=== PATIENT | female | born 1990 | race Caucasian/White ===

== ENCOUNTER 2017-03-19 17:54 | Inpatient (IN) | payer MEDICAID, OTHER ==
[~2017-03-19] VITALS: Ht 142.2 cm; Wt 62.9 kg
[2017-03-19 17:55] VITALS: BP 135/87; PULSE 122; RESP 0; RESP 20; TEMP 99; O2SAT 98
--- NOTE | 2017-03-19 18:29 | PD ---
HPI Chief Complaint: Psychiatric Symptoms Time Seen by Provider: 18:26 Travel History International Travel<30 days: No Contact w/Intl Traveler<30days: No Traveled to known affect area: No History of Present Illness HPI HX OF BIPOLAR; PT HAS BEEN HAVING SUICIDAL THOUGHTS; WANTING TO CUT HERSELF IN AN ATTEMPT TO KILL HERSELF "IT WOULD BE BETTER FOR EVERYONE ELSE IF I'M GONE" RESIDED IN [facility] FOR 5 YRS; FOLLOWED BY SMA SENT HERE FOR PSYCHIATRIC ADMISSION FOR STABLIZATION [facility] Past Medical History ?: Unknown Social History Tobacco Use: No Allergies-Medications (Allergen,Severity, Reaction): Coded Allergies: No Known Allergies (Unverified , 03/19/17) Reported Meds & Prescriptions Reported Meds & Active Scripts Active Reported Bajandas Carbonate 300 Mg Cap 300 Mg PO BID Clozapine 100 Mg Tab 100 Mg PO HS Clozapine 50 Mg Tab 50 Mg PO BID Miralax Powder (Polyethylene Glycol 3350 Powder) 17 Gm Powd 17 Gm PO DAILY Mix and dissolve one measuring cap-ful (17 grams) in water or juice. Bisacodyl EC (Bisacodyl) 5 Mg Tabec 5 Mg PO DAILY PRN Review of Systems Except as stated in HPI: all other systems reviewed are Neg General / Constitutional: No: Fever Eyes: No: Visual changes HENT: No: Headaches Cardiovascular: No: Chest Pain or Discomfort Respiratory: No: Shortness of Breath Gastrointestinal: No: Abdominal Pain Genitourinary: No: Dysuria Musculoskeletal: No: Pain Skin: No Rash Neurologic: No: Weakness Psychiatric: Positive: Suicidal Ideations Endocrine: No: Polydipsia Hematologic/Lymphatic: No: Easy Bruising Physical Exam Narrative GENERAL: SKIN: Warm and dry. HEAD: Atraumatic. Normocephalic. EYES: Pupils equal and round. No scleral icterus. No injection or drainage. ENT: No nasal bleeding or discharge. Mucous membranes pink and moist. NECK: Trachea midline. No JVD. CARDIOVASCULAR: Regular rate and rhythm. RESPIRATORY: No accessory muscle use. Clear to auscultation. Breath sounds equal bilaterally. GASTROINTESTINAL: Abdomen soft, non-tender, nondistended. Hepatic and splenic margins not palpable. MUSCULOSKELETAL: Extremities without clubbing, cyanosis, or edema. No obvious deformities. NEUROLOGICAL: Awake and alert. No obvious cranial nerve deficits. Motor grossly within normal limits. Five out of 5 muscle strength in the arms and legs. Normal speech. PSYCHIATRIC: DEPRESSED mood and SAD affect; Data Data Last Documented VS Vital Signs Date Time Temp Pulse Resp B/P (MAP) Pulse Ox O2 Delivery O2 Flow Rate FiO2 03/19/17 18:40 18 03/19/17 17:55 99.0 122 135/87 (103) 98 Room Air Orders Orders Complete Blood Count With Diff (03/19/17 18:01) Basic Metabolic Panel (Bmp) (03/19/17 18:01) Urinalysis - C+S If Indicated (03/19/17 18:01) Ed Urine Pregnancytest Poc (03/19/17 18:01) Psych Screen (03/19/17 18:01) Bajandas (Li) (03/19/17 18:01) Drug Screen, Random Urine (03/19/17 18:01) Alcohol (Ethanol) (03/19/17 18:01) Urine Culture (03/19/17 18:10) Lorazepam Inj (Ativan Inj) (03/19/17 21:00) Admit Order (Ed Use Only) (03/19/17 23:37) Labs Laboratory Tests Test 03/19/17 18:10 White Blood Count 10.2 TH/MM3 Red Blood Count 4.46 MIL/MM3 Hemoglobin 12.9 GM/DL Hematocrit 38.2 % Mean Corpuscular Volume 85.6 FL Mean Corpuscular Hemoglobin 28.9 PG Mean Corpuscular Hemoglobin Concent 33.8 % Red Cell Distribution Width 12.2 % Platelet Count 266 TH/MM3 Mean Platelet Volume 8.5 FL Neutrophils (%) (Auto) 54.8 % Lymphocytes (%) (Auto) 36.0 % Monocytes (%) (Auto) 9.2 % Eosinophils (%) (Auto) 0.0 % Basophils (%) (Auto) 0.0 % Neutrophils # (Auto) 5.6 TH/MM3 Lymphocytes # (Auto) 3.7 TH/MM3 Monocytes # (Auto) 0.9 TH/MM3 Eosinophils # (Auto) 0.0 TH/MM3 Basophils # (Auto) 0.0 TH/MM3 CBC Comment DIFF FINAL Differential Comment Urine Color LIGHT-YELLOW Urine Turbidity CLEAR Urine pH 5.5 Urine Specific [place] 1.004 Urine Protein NEG mg/dL Urine Glucose (UA) NEG mg/dL Urine Ketones NEG mg/dL Urine Occult Blood NEG Urine Nitrite NEG Urine Bilirubin NEG Urine Urobilinogen LESS THAN 2.0 MG/DL Urine Leukocyte Esterase NEG Urine RBC 1 /hpf Urine WBC 3 /hpf Urine Squamous Epithelial Cells 2 /hpf Urine Bacteria MANY /hpf Urine Mucus FEW /lpf Microscopic Urinalysis Comment CULTURE INDICATED Blood Urea Nitrogen 17 MG/DL Creatinine 0.99 MG/DL Random Glucose 78 MG/DL Calcium Level 9.0 MG/DL Sodium Level 140 MEQ/L Potassium Level 3.6 MEQ/L Chloride Level 106 MEQ/L Carbon Dioxide Level 23.4 MEQ/L Anion Gap 11 MEQ/L Estimat Glomerular Filtration Rate 69 ML/MIN Urine Opiates Screen NEG Urine Barbiturates Screen NEG Urine Amphetamines Screen NEG Urine Benzodiazepines Screen NEG Bajandas Level 0.7 MEQ/L Urine Cocaine Screen NEG Urine Cannabinoids Screen NEG Ethyl Alcohol Level LESS THAN 3 MG/DL MDM Medical Decision Making Medical Screen Exam Complete: Yes Emergency Medical Condition: Yes Medical Record Reviewed: Yes Differential Diagnosis SUICIDAL IDEATION V HYPOTHYROID V ELECTROLYTE ABNL V LIVER ABNL Narrative Course PATIENT IS MEDICALLY CLEARED (ONLY FOUND TO HAVE UTI FOR WHICH PATIENT WAS TREATED WITH ONE TIME TREATMENT OF ROCEPHIN IM) OTHERWISE PATIENT'S CBC, BMP WERE WNL Diagnosis Primary Impression: CORNEJO ACT -MEDICALLY CLEARED Additional Impression: UTI S/P SINGLE TREATMENT WITH ROCEPHIN Matthew Oakley MD Mar 19, 2017 18:29
[2017-03-19 18:37] LABS: BACTERIA, URINE MANY /hpf; BLOOD, URINE NEG (NEG); COMMENT (UR) CULTURE INDICATED; CULTURE IF INDICATED CULTURE INDICATED; GLUCOSE,URINE NEG (NEG); KETONE, URINE NEG (NEG); MUCUS URINE FEW /lpf (OCC); NITRITE,URINE NEG (NEG); PH, URINE 5.5 (5.0-8.5); SQUAMOUS EPITHELIAL CELL URINE 2 /hpf (0-5); URINE COLOR LIGHT-YELLOW (YELLW/STRAW)
[2017-03-19 18:39] LABS: AUTOMATED NEUTROPHIL # 5.6 TH/MM3 (1.8-7.7); HEMATOCRIT 38.2 % (35.0-46.0); HEMO FLAGS DIFF FINAL; LYMPHOCYTE # 3.7 TH/MM3 (1.0-4.8); MEAN CELL VOLUME 85.6 FL (80.0-100.0); MEAN CORPUSCULAR HEMOGLOBIN 28.9 PG (27.0-34.0); MEAN CORPUSCULAR HGB CONC 33.8 % (32.0-36.0); MONO % 9.2 % (0.0-8.0); NEUT % 54.8 % (16.0-70.0); PLATELET COUNT 266 TH/MM3 (150-450); RED BLOOD COUNT 4.46 MIL/MM3 (4.00-5.30); RED CELL DISTRIBUTION WIDTH 12.2 % (11.6-17.2); WHITE BLOOD COUNT 10.2 TH/MM3 (4.0-11.0)
[2017-03-19] MEDS ORDERED: CLOZ100T3 PO (18:46)
[2017-03-19] MEDS ORDERED: LITH300C2 PO (18:46)
[2017-03-19] MEDS ORDERED: FLEE5TAB PO (18:46)
[2017-03-19] MEDS ORDERED: MIRA3350 PO (18:46)
[2017-03-19] MEDS ORDERED: CLOZ50TA PO (18:46)
[2017-03-19 18:48] LABS: ALCOHOL LESS THAN 3 MG/DL (0-5); ANION GAP 11 MEQ/L (5-15); BICARBONATE 23.4 MEQ/L (21.0-32.0); BLOOD UREA NITROGEN 17 MG/DL (7-18); CHLORIDE 106 MEQ/L (98-107); GLOMERULAR FILTRATION RATE 69 ML/MIN (>89); POTASSIUM 3.6 MEQ/L (3.5-5.1); SODIUM (NA) 140 MEQ/L (136-145)
[2017-03-19] MEDS ORDERED: LORazepam 2 MG/ML VIAL IM ONE (21:00)
[2017-03-20] MEDS ORDERED: LIDOCAINE HCL 1% PF 30 ML VIAL XX ONE (00:15)
[2017-03-20] MEDS ORDERED: hydrOXYzine HCL 50 MG TAB PO PRN (00:30)
[2017-03-20] MEDS ORDERED: diphenhydrAMINE HCL 50 MG CAP PO PRN (00:30)
[2017-03-20] MEDS ORDERED: ALUMINUM/MAGNESIUM/SIMETH 30 ML CUP PO PRN (00:30)
[2017-03-20] MEDS ORDERED: traZODone HCL 50 MG TAB PO PRN (00:30)
[2017-03-20] MEDS ORDERED: LORazepam 1 MG TAB PO PRN (00:30)
[2017-03-20] MEDS ORDERED: diphenhydrAMINE HCL 50 MG CAP - HS PRN PO (00:30)
[2017-03-20] MEDS ORDERED: MAGNESIUM HYDROXIDE SUSP 30 ML CUP PO PRN (00:30)
[2017-03-20] MEDS ORDERED: ACETAMINOPHEN 325 MG TAB PO PRN (00:30)
[2017-03-20] MEDS ORDERED: diphenhydrAMINE HCL 50 MG/ML VIAL IM PRN (00:30)
[2017-03-20] MEDS ORDERED: diphenhydrAMINE HCL 50 MG/ML VIAL - HS PRN IM (00:30)
[2017-03-20] MEDS ORDERED: LORazepam 2 MG/ML VIAL IM PRN (00:30)
[2017-03-20 00:45] VITALS: BP 142/69; PULSE 119; RESP 20; TEMP 98.1
[2017-03-20 06:46] VITALS: BP 128/65; PULSE 108; RESP 16; TEMP 98.6; O2SAT 98
[2017-03-20] MEDS: LITHIUM CARBONATE 300 MG SLOW RELEASE TAB PO SCH ×2 (09:32→20:37)
[2017-03-20] MEDS: cloZAPine 25 MG TAB PO SCH ×2 (09:32→14:09)
--- NOTE | 2017-03-20 10:45 | PD.TTN ---
Patient Problems 1. Discharge planning 2. Medication compliance 3. Knowledge deficit 4. Lack of coping skills Progress Toward Goals Provider Present: Dr. Faustina Stearns Provider Input: Dr. Ruffin's treatment team met to discuss patient's treatment plan, medication, and discharge plan. Will assess patient and treat patient accordingly. Nurse(s) Input: Patient's nurse Priti reports patient continues to be on 1 to 1 due to high impulsivity and suicidal ideation. Patient is medication compliant. Psychiatric Counselors Present: ANNA Chapman Psych Therapist Input: Patient is a new admission.. This counselor will assess patient and go over treatment plan and goals with patient. Group Spec/RT/OT/POTTER Present: ABBEY Hidalgo Group Spec/RT/OT/POTTER Input: Patient is new. Muriel Lafleur Mar 20, 2017 10:45
[2017-03-20] MEDS: BACITRACIN TOP OINT 15 GM TUBE TOPICAL SCH ×2 (14:00→20:41)
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
[2017-03-20 17:00] VITALS: BP 102/73; PULSE 104; RESP 16; TEMP 97.6; O2SAT 100
[2017-03-20] MEDS: cloZAPine 100 MG TAB PO SCH (20:37)
[2017-03-20] MEDS: MIRTAZAPINE 15 MG TAB PO SCH (20:37)
[2017-03-21] MEDS: BACITRACIN TOP OINT 15 GM TUBE TOPICAL SCH ×3 (05:45→22:30)
[2017-03-21 06:22] VITALS: BP 119/69; PULSE 110; RESP 18; TEMP 97.2; O2SAT 100
[2017-03-21] MEDS: LITHIUM CARBONATE 300 MG SLOW RELEASE TAB PO SCH ×2 (09:55→21:28)
[2017-03-21] MEDS: cloZAPine 25 MG TAB PO SCH (09:56)
[2017-03-21 13:53] LABS: AUTOMATED NEUTROPHIL # 3.6 TH/MM3 (1.8-7.7); BASOPHIL % 0.3 % (0.0-2.0); HEMATOCRIT 35.7 % (35.0-46.0); HEMO FLAGS DIFF FINAL; LYMPH % 31.2 % (9.0-44.0); LYMPHOCYTE # 1.9 TH/MM3 (1.0-4.8); MEAN CELL VOLUME 85.7 FL (80.0-100.0); MEAN CORPUSCULAR HEMOGLOBIN 29.8 PG (27.0-34.0); MEAN CORPUSCULAR HGB CONC 34.8 % (32.0-36.0); MONO % 9.3 % (0.0-8.0); NEUT % 59.2 % (16.0-70.0); PLATELET COUNT 232 TH/MM3 (150-450); RED BLOOD COUNT 4.17 MIL/MM3 (4.00-5.30); RED CELL DISTRIBUTION WIDTH 12.6 % (11.6-17.2)
[2017-03-21 14:18] LABS: ANION GAP 6 MEQ/L (5-15); BICARBONATE 26.3 MEQ/L (21.0-32.0); BLOOD UREA NITROGEN 13 MG/DL (7-18); CHLORIDE 111 MEQ/L (98-107); GLOMERULAR FILTRATION RATE 82 ML/MIN (>89); POTASSIUM 4.2 MEQ/L (3.5-5.1); SODIUM (NA) 143 MEQ/L (136-145)
[2017-03-21 14:29] LABS: HDL CHOLESTEROL 63.2 MG/DL (40.0-60.0); LDL CHOLESTEROL 86 MG/DL (0-99)
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
[2017-03-21 15:11] LABS: HEMOGLOBIN A1a 0.7 %; HEMOGLOBIN A1b 0.9 %; HEMOGLOBIN Ao 85.6 %; HEMOGLOBIN F 0.8 %; HEMOGLOBIN LA1C 2.1 %; HEMOGLOBIN P3 3.6 %
[2017-03-21 20:39] VITALS: BP 134/68; PULSE 97; RESP 17; TEMP 97.7; O2SAT 99
[2017-03-21] MEDS: MIRTAZAPINE 15 MG TAB PO SCH (21:28)
[2017-03-21] MEDS: cloZAPine 100 MG TAB PO SCH (21:28)
[2017-03-22] MEDS: BACITRACIN TOP OINT 15 GM TUBE TOPICAL SCH ×3 (06:00→21:10)
[2017-03-22 06:14] LABS: CLOZAPINE/NORCLOZAPINE TOTAL 300 ng/mL (>450); NORCLOZAPINE 146 ng/mL
[2017-03-22 06:41] VITALS: BP 116/57; PULSE 97; RESP 18; TEMP 98.6; O2SAT 98
[2017-03-22] MEDS: LITHIUM CARBONATE 300 MG SLOW RELEASE TAB PO SCH ×2 (08:15→21:10)
[2017-03-22] MEDS: cloZAPine 25 MG TAB PO SCH ×2 (08:15→14:00)
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
[2017-03-22 18:59] VITALS: BP 135/78; PULSE 107; RESP 17; TEMP 98.3; O2SAT 99
[2017-03-22] MEDS: MIRTAZAPINE 15 MG TAB PO SCH (21:09)
[2017-03-22] MEDS: cloZAPine 100 MG TAB PO SCH (21:09)
[2017-03-23 06:07] VITALS: BP 101/55; PULSE 94; RESP 16; TEMP 97.6; O2SAT 97
[2017-03-23] MEDS: BACITRACIN TOP OINT 15 GM TUBE TOPICAL SCH ×3 (06:14→22:00)
[2017-03-23] MEDS: cloZAPine 25 MG TAB PO SCH ×2 (09:08→14:11)
[2017-03-23] MEDS: LITHIUM CARBONATE 300 MG SLOW RELEASE TAB PO SCH ×2 (09:08→21:06)
--- NOTE | 2017-03-23 12:37 | HHI.PYPN ---
Subjective Chief Complaint: Suicidal ideation with self injurious behavior Remarks Patient was seen and case discussed with nursing. Patient is childlike and mildly oppositional. She is perseverative on ending her life she diego pictures of various ways of doing it. Also gunshot, hanging herself, jumping off is [address], or drowning. She denies any intent of hurting herself here in the hospital. She has a one-to-one. She is compliant with her medications and tolerating it well. Supportive therapy was provided Mental Status Examination Appearance: Appropriate, Other (childlike behavior (sucking on thumb, in position, holding stuffed animal) Consciousness: Alert Orientation: x4 Motor Activity: Normal gait Speech: Unremarkable Language: Adequate Fund of Knowledge: Inadequate Attention and Concentration: Adequate Memory: Unremarkable Mood: Sad, Oppositional, Other ("depressed") Affect: Blunt, Other (smiles occasionally) Thought Process & Associations: Linear Thought Content: Preoccupations (with wanted to end her life), Compulsive ( thoughts of self harm) Hallucination Type: None Delusion Type: None Suicidal Ideation: Yes Suicidal Plan: Yes (diego a picture of various plans) Suicidal Intention: No Homicidal Ideation: No Homicidal Plan: No Homicidal Intention: No Insight: Fair Judgment: Poor Results Labs Date/Time Source Procedure Growth Status 03/19/17 18:10 Urine Random Urine Urine Culture - Final 10-50,000 CFU/ML MIXED GRAM POSITIVE ... Complete Vitals/IOs Vital Signs Date Time Temp Pulse Resp B/P (MAP) Pulse Ox O2 Delivery O2 Flow Rate FiO2 03/23/17 06:07 97.6 94 16 101/55 (70) 97 03/19/17 17:55 Room Air Intake and Output 03/23/17 03/23/17 03/24/17 08:00 16:00 00:00 Intake Total 480 ml 480 ml Balance 480 ml 480 ml Assessment & Plan Problem List: (1) Bipolar disorder, current episode depressed, severe, without psychotic features ICD Codes: F31.4 - Bipolar disorder, current episode depressed, severe, without psychotic features Assessment & Plan Continue one-to-one. Justification for Cont. Inpt. Patient would decompensate in a less restrictive setting Shamir Nguyễn DO Mar 23, 2017 12:37
[2017-03-23] MEDS: cloZAPine 100 MG TAB PO SCH (21:06)
[2017-03-23] MEDS: MIRTAZAPINE 15 MG TAB PO SCH (21:06)
[2017-03-24] MEDS: BACITRACIN TOP OINT 15 GM TUBE TOPICAL SCH ×3 (06:00→20:16)
[2017-03-24 06:07] VITALS: BP 93/51; PULSE 96; RESP 18; TEMP 98.2; O2SAT 98
[2017-03-24] MEDS: cloZAPine 25 MG TAB PO SCH ×2 (08:58→14:04)
[2017-03-24] MEDS: LITHIUM CARBONATE 300 MG SLOW RELEASE TAB PO SCH ×2 (08:59→20:15)
--- NOTE | 2017-03-24 14:49 | HHI.PYPN ---
Subjective Chief Complaint: Suicidal ideation with self injurious behavior Remarks Patient was seen and case discussed with nursing. Patient remains childlike, hugging her stuffed animal. He appears less focused on various suicidal plans she says and does cross her mind. Asking about MiraLAX. Behaving well on the unit Mental Status Examination Appearance: Appropriate, Other (childlike behavior (sucking on thumb, in position, holding stuffed animal) Consciousness: Alert Orientation: x4 Motor Activity: Normal gait Speech: Unremarkable Language: Adequate Fund of Knowledge: Inadequate Attention and Concentration: Adequate Memory: Unremarkable Mood: Sad, Oppositional, Other ("depressed") Affect: Blunt, Other (smiles occasionally) Thought Process & Associations: Linear Thought Content: Preoccupations (with wanted to end her life), Compulsive ( thoughts of self harm) Hallucination Type: None Delusion Type: None Suicidal Ideation: Yes (fleeting) Suicidal Plan: Yes (various plans) Suicidal Intention: No Homicidal Ideation: No Homicidal Plan: No Homicidal Intention: No Insight: Fair Judgment: Poor Results Labs Date/Time Source Procedure Growth Status 03/19/17 18:10 Urine Random Urine Urine Culture - Final 10-50,000 CFU/ML MIXED GRAM POSITIVE ... Complete Vitals/IOs Vital Signs Date Time Temp Pulse Resp B/P (MAP) Pulse Ox O2 Delivery O2 Flow Rate FiO2 03/24/17 06:07 98.2 96 18 93/51 (65) 98 Assessment & Plan Problem List: (1) Bipolar disorder, current episode depressed, severe, without psychotic features ICD Codes: F31.4 - Bipolar disorder, current episode depressed, severe, without psychotic features Assessment & Plan Add MiraLAX Justification for Cont. Inpt. Patient will decompensate in a less restrictive setting Shamir Nguyễn DO Mar 24, 2017 14:49
[2017-03-24] MEDS: POLYETHYLENE GLYCOL 17 GM PKG PO SCH (15:07)
[2017-03-24 17:08] VITALS: BP 174/87; PULSE 80; RESP 17; TEMP 98.6; O2SAT 100
[2017-03-24 18:18] VITALS: BP 148/85; PULSE 113; RESP 17; TEMP 97.8; O2SAT 96
[2017-03-24] MEDS: MIRTAZAPINE 15 MG TAB PO SCH (20:15)
[2017-03-24] MEDS: cloZAPine 100 MG TAB PO SCH (20:15)
[2017-03-25 05:58] VITALS: BP 101/66; PULSE 84; RESP 15; TEMP 98; O2SAT 97
[2017-03-25] MEDS: BACITRACIN TOP OINT 15 GM TUBE TOPICAL SCH ×3 (06:00→21:45)
[2017-03-25] MEDS: POLYETHYLENE GLYCOL 17 GM PKG PO SCH (09:50)
[2017-03-25] MEDS: cloZAPine 25 MG TAB PO SCH ×2 (09:50→13:56)
[2017-03-25] MEDS: LITHIUM CARBONATE 300 MG SLOW RELEASE TAB PO SCH ×2 (09:50→21:45)
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
--- NOTE | 2017-03-25 15:55 | PD.TTN ---
Patient Problems 1. Discharge planning 2. Medication compliance 3. Knowledge deficit 4. Lack of coping skills Progress Toward Goals Provider Present: Dr. Faustina Stearns Provider Input: Dr. Ruffin's treatment team met to discuss patient's treatment plan, medication, and discharge plan. Will assess patient and treat patient accordingly. 03/25/17 Patient presented better today. Patient is denying suicidal and homicidal ideation. If patient continues to present well today and tomorrow patient could be possibly discharged if patient does not [facility] Nurse(s) Input: Patient's nurse Priti reports patient continues to be on 1 to 1 due to high impulsivity and suicidal ideation. Patient is medication compliant. 03/25/17] Patient's nurse Christopher states patient has borderline personality, and is denying suicidal and homicidal ideation. Patient is medication compliant Psychiatric Counselors Present: JARRETT ChapmanAshly Psych Therapist Input: Patient is a new admission.. This counselor will access patient and go over treatment plan and goals with patient. 03/25/17 Patient presented better today but continues to be on a 1 to 1. Patient continues to present childlike, cooperative but restricted, affect blunted. Patient denied suicidal and homicidal ideation today. Patient came to psycho educational group today and was more involved. Patient is medication compliant and did state she was not suicidal and homicidal. It was spoken in treatment team that if patient does not improve [facility] would [facility] Group Spec/RT/OT/POTTER Present: ABBEY Hidalgo, Vincent Lu, OT Group Spec/RT/OT/POTTER Input: Patient is new. 03/25/17 Patient does not attend Muriel Mcqueen [facility] Mar 25, 2017 15:55
[2017-03-25 16:59] VITALS: BP 128/63; PULSE 114; RESP 18; TEMP 98.4; O2SAT 98
[2017-03-25 20:00] VITALS: BP 128/83; PULSE 114; RESP 18; TEMP 98.4; O2SAT 98
[2017-03-25] MEDS: MIRTAZAPINE 15 MG TAB PO SCH (21:45)
[2017-03-25] MEDS: cloZAPine 100 MG TAB PO SCH (21:45)
[2017-03-26] MEDS: BACITRACIN TOP OINT 15 GM TUBE TOPICAL SCH ×3 (06:00→22:00)
[2017-03-26] MEDS: LITHIUM CARBONATE 300 MG SLOW RELEASE TAB PO SCH ×2 (09:19→21:00)
[2017-03-26] MEDS: POLYETHYLENE GLYCOL 17 GM PKG PO SCH (09:20)
[2017-03-26] MEDS: cloZAPine 25 MG TAB PO SCH ×2 (09:20→13:29)
--- NOTE | 2017-03-26 14:52 | HHI.PYPN ---
Subjective Chief Complaint: Suicidal ideation with self injurious behavior Remarks Patient seen for follow-up, chart reviewed. Patient was found participating in group activities outside and was able to interact with interview with junior technical writer nurse and therapist. Patient states that she has been sleeping well, her mood has been "happy", and reports eating and drinking well, denies any side effects from current treatment regimen. Patient states that she has not had any thoughts of self-harm or thoughts of not wanting to be alive or active suicidal ideations for the past couple of days. Patient states that she feels ready to go home and feels motivated to continue her treatment. Patient was advised that she will be on the unit without one-to-one observation and later was noted to be upset that this was removed stating that she had always had one-to-one sitters with her during her previous hospitalizations and stated "what am I supposed to do now" but patient was encouraged to continue her participation in groups and activities as before which she agreed to. Review of Systems Except as stated in HPI: all other systems reviewed are Neg Mental Status Examination Appearance: Appropriate, Other (childlike behavior (sucking on thumb, in position, holding stuffed animal) Consciousness: Alert Orientation: x4 Motor Activity: Normal gait Speech: Unremarkable Language: Adequate Fund of Knowledge: Inadequate Attention and Concentration: Adequate Memory: Unremarkable Mood: Appropriate Affect: Appropriate Thought Process & Associations: Linear Thought Content: Appropriate Hallucination Type: None Delusion Type: None Suicidal Ideation: No Suicidal Plan: No Suicidal Intention: No Homicidal Ideation: No Homicidal Plan: No Homicidal Intention: No Insight: Fair Judgment: Poor Results Labs Labs reviewed Date/Time Source Procedure Growth Status 03/19/17 18:10 Urine Random Urine Urine Culture - Final 10-50,000 CFU/ML MIXED GRAM POSITIVE ... Complete Vitals/IOs Vital Signs Date Time Temp Pulse Resp B/P (MAP) Pulse Ox O2 Delivery O2 Flow Rate FiO2 03/25/17 20:00 98.4 114 18 128/83 (02) 98 Assessment & Plan Problem List: (1) Bipolar disorder, current episode depressed, severe, without psychotic features ICD Codes: F31.4 - Bipolar disorder, current episode depressed, severe, without psychotic features Assessment & Plan Patient continued to report having a better day today, denied any suicidal ideations recently, denied any perceptual disturbances and states that she feels better and considering going home soon. When acknowledged that patient was feeling better she was advised that she would have one-to-one observation removed and which patient was later noted to be upset and crying. Unclear whether patient is able to contain her fear of what may be her perceived abandonment by sitter which it is possible the patient may act out and return to having thoughts of hurting self. We'll continue to monitor patient's mood and behavior, continue current treatment. If patient remains with good behavior and good self-control and no longer endorsing thoughts of self-harm patient will be considered for discharge soon. Discharge planning in progress Justification for Cont. Inpt. At risk for further decompensation if at lower level of care Discharge Planning Patient is discharged back to her caregivers once psychiatrically stable Que Stearns MD Mar 26, 2017 14:52
[2017-03-26] MEDS: MIRTAZAPINE 15 MG TAB PO SCH (21:10)
[2017-03-26] MEDS: cloZAPine 100 MG TAB PO SCH (21:10)
[2017-03-27] MEDS: BACITRACIN TOP OINT 15 GM TUBE TOPICAL SCH ×2 (06:00→13:51)
[2017-03-27 06:10] VITALS: BP 110/56; RESP 17; TEMP 98.4; O2SAT 97
[2017-03-27 06:11] VITALS: PULSE 114
[2017-03-27 06:14] VITALS: BP 118/67; PULSE 104; RESP 17; TEMP 98.4; O2SAT 98
[2017-03-27] MEDS: LITHIUM CARBONATE 300 MG SLOW RELEASE TAB PO SCH (08:41)
[2017-03-27] MEDS: cloZAPine 25 MG TAB PO SCH ×2 (08:41→13:51)
[2017-03-27] MEDS: POLYETHYLENE GLYCOL 17 GM PKG PO SCH (08:42)
[2017-03-27] MEDS ORDERED: MIRTA15 PO (11:06)
[2017-03-27] MEDS ORDERED: QC B500O TOPICAL (11:06)
[2017-03-27] MEDS ORDERED: CLOZ50TA PO (11:06)
[2017-03-27] MEDS ORDERED: LITH300T PO (11:06)
[2017-03-27] MEDS ORDERED: CLOZ100T3 PO (11:06)
--- NOTE | 2017-03-27 15:51 | PD.TTN ---
Patient Problems 1. Discharge planning 2. Medication compliance 3. Knowledge deficit 4. Lack of coping skills Progress Toward Goals Provider Present: Dr. Faustina Stearns Provider Input: Dr. Ruffin's treatment team met to discuss patient's treatment plan, medication, and discharge plan. Will assess patient and treat patient accordingly. 03/25/17 Patient presented better today. Patient is denying suicidal and homicidal ideation. If patient continues to present well today and tomorrow patient could be possibly discharged if patient does not [facility] 03/27/17 Patient is doing well will be discharged back to her retirement. Nurse(s) Input: Patient's nurse Priti reports patient continues to be on 1 to 1 due to high impulsivity and suicidal ideation. Patient is medication compliant. 03/25/17] Patient's nurse Christopher states patient has borderline personality, and is denying suicidal and homicidal ideation. Patient is medication compliant 03/27/17 Patient's nurse Luke reports patient is doing well, able to control behaviors, redirectable, childlike Psychiatric Counselors Present: ANNA Chapman Psych Therapist Input: Patient is a new admission.. This counselor will access patient and go over treatment plan and goals with patient. 03/25/17 Patient presented better today but continues to be on a 1 to 1. Patient continues to present childlike, cooperative but restricted, affect blunted. Patient denied suicidal and homicidal ideation today. Patient came to psycho educational group today and was more involved. Patient is medication compliant and did state she was not suicidal and homicidal. It was spoken in treatment team that if patient does not improve [facility] would [facility]. 03/27/17 Patient doing well. Patient denies suicidal and homicidal ideation. patient does not present to be internally stimulated or with any delusional content. Patient presents childlike, cooperative, pleasant, affect appropriate. Group Spec/RT/OT/POTTER Present: ABBEY Hidalgo Andrew Harrison, KEITH Group Spec/RT/OT/POTTER Input: Patient is new. 03/25/17 Patient does not attend groups 03/27/17 Patient progressed with participation. Attends most groups appropriately, childlike, easily redirectable Muriel Lafleur Mar 27, 2017 15:51
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
[2017-03-28 16:33] LABS: CLOZAPINE/NORCLOZAPINE TOTAL 673 ng/mL (>450); NORCLOZAPINE 245 ng/mL
== END 2017-03-27 15:45 | disposition home or self-care (01) | DRG 885 ==
LOC: NEPD 17:54 → NEDA 23:39 → H260 03-20 00:45
PROVIDERS: ADMIT Student in an Organized Health Care Education/Training Program; ATTEND Student in an Organized Health Care Education/Training Program
DX: F31.4 Bipolar disorder, current episode depressed, severe, without psychotic features (principal); N39.0 Urinary tract infection, site not specified
CPT/HCPCS: 80048; 80061; 80159; 80178; 80307; 81001; 83036; 84443; 84703; 85025; 87086; 96372; G0480; J0696; J2060; Q0163